=== PATIENT | female | born 1935 | race Caucasian/White ===

== ENCOUNTER 2019-05-13 04:47 | Emergency (ER) | payer OTHER ==
[~2019-05-13] VITALS: Ht 170.2 cm; Wt 108.9 kg
[2019-05-13 07:10] VITALS: BP 129/82
[2019-05-13 07:13] LABS: Basophils # (auto) 0 10 ^3/uL (0-0.2); Eosinophils # (auto) 0.1 10 ^3/uL (0-0.8); Eosinophils % (auto) 0.9 % (0.0-7.0); Lymphocytes # (auto) 1.4 10 ^3/uL (0.4-5.4); Monocytes # (auto) 0.7 10 ^3/uL (0-1.3); Monocytes % (auto) 8.9 % (0.0-12.0); Red Cell Distribution Width 13.7 % (11.8-14.3)
[2019-05-13 07:15] LABS: Basophils % (auto) 0.6 % (0.0-2.0); Hemoglobin 18.8 g/dL (12.2-16.2); Lymphocytes % (auto) 16.6 % (10.0-50.0); Mean Corpuscular Hemoglobin 33.7 pg (28.0-32.0); Mean Corpuscular Hgb Conc. 33.6 g/dL (32.0-36.0); Mean Corpuscular Volume 100.3 fL (80.0-100.0); Neutrophils # (auto) 6.2 10 ^3/uL (1.6-8.6); Nucleated Red Blood Cells % 0.1 %; Platelet Count (auto) 230 10^3/uL (140-450); Red Blood Cells 5.59 10^6/uL (4.0-5.20); White Blood Cell 8.4 10^3/uL (4.4-10.8)
[2019-05-13 07:28] LABS: INR 1.09 (0.9-1.15); Partial Thromboplastin Time 22.2 sec (23.64-32.05)
[2019-05-13 08:34] LABS: Alanine Aminotransferase 57 U/L (13-56); Alkaline Phosphatase 103 U/L (45-117); Anion Gap 8 (5-15); Aspartate Aminotransferase 50 U/L (15-37); Bilirubin, Total 2.7 mg/dL (0.2-1.0); Blood Urea Nitrogen 24 mg/dL (7-18); Calcium 10.3 mg/dL (8.5-10.1); Carbon Dioxide 21 mmol/L (21-32); Chloride 107 mmol/L (98-107); GFR African American 49 mL/min; GFR Non-African American 40 mL/min; Glucose 130 mg/dL (74-106); Magnesium 2.3 mg/dL (1.6-2.6); Potassium 3.4 mmol/L (3.5-5.1); Sodium 136 mmol/L (136-145); Total Protein 8.1 g/dL (6.4-8.2)
[2019-05-13] MEDS ORDERED: POTASSIUM EFFERVESENT TAB 25 MEQ PO ONE (09:15)
== END 2019-05-13 10:15 | disposition home or self-care (01) ==
LOC: ER 04:47 → EDBD 04:47 → ER 10:15
DX: M54.2 Cervicalgia (principal); I10 Essential (primary) hypertension; W19.XXXA Unspecified fall, initial encounter; Y93.89 Activity, other specified; Y92.89 Other specified places as the place of occurrence of the external cause; Y99.8 Other external cause status
CPT/HCPCS: 36415; 70450; 71045; 72125; 80053; 83735; 84484; 85025; 85610; 85730; 93005

== ENCOUNTER 2019-05-22 15:51 | Emergency (ER) | payer OTHER ==
[~2019-05-22] VITALS: Ht 167.6 cm; Wt 113.4 kg
[2019-05-22] MEDS ORDERED: SODIUM CHLORIDE 0.9% 1,000 ML IVB ONE (17:26)
[2019-05-22] MEDS ORDERED: cefTRIAXone 1GM/50ML D5W 50 ML IV ONE (17:30)
[2019-05-22 17:56] LABS: Urine Bacteria NONE SEEN /hpf (None Seen); Urine Blood TRACE /uL (Negative); Urine Hyaline Cast FEW /lpf (0 - 2); Urine Mucus FEW (None Seen); Urine Specific Gravity 1.023 (1.001-1.035); Urine WBC 14 /hpf (0 - 5)
[2019-05-22 18:43] LABS: Hematocrit 49.7 % (36.0-46.0); Mean Corpuscular Hgb Conc. 34.1 g/dL (32.0-36.0); Mean Corpuscular Volume 96.7 fL (80.0-100.0); Platelet Count (auto) 353 10^3/uL (140-450); Red Blood Cells 5.14 10^6/uL (4.0-5.20); Red Cell Distribution Width 13.4 % (11.8-14.3)
[2019-05-22 18:50] LABS: White Blood Cell 42.9 10^3/uL (4.4-10.8)
[2019-05-22 18:51] LABS: Alanine Aminotransferase 32 U/L (13-56); Albumin 2.9 g/dL (3.4-5.0); Anion Gap 8 (5-15); Aspartate Aminotransferase 40 U/L (15-37); BUN/Creatinine Ratio 20.5; Blood Alcohol < 3.0 mg/dL (0-5); Blood Urea Nitrogen 30 mg/dL (7-18); Carbon Dioxide 25 mmol/L (21-32); Chloride 107 mmol/L (98-107); GFR African American 44 mL/min; GFR Non-African American 36 mL/min; Glucose 179 mg/dL (74-106); Magnesium 2.2 mg/dL (1.6-2.6); Potassium 3.9 mmol/L (3.5-5.1); Sodium 140 mmol/L (136-145)
[2019-05-22 18:52] LABS: Basophils % (manual) 0 (0.0-2.0); Blast Cells 0; Eosinophils % (manual) 0 (0-7); Metamyelocytes % 0; Myelocytes % 0; Promyelocytes % 0; Reactive Lymphocytes 0
[2019-05-22 18:53] LABS: INR 1.3 (0.9-1.15); Lactic Acid w/Reflex 2.6 mmol/L (0.4-2.0); Partial Thromboplastin Time 28.5 sec (23.64-32.05)
[2019-05-22 18:54] LABS: Alkaline Phosphatase 134 U/L (45-117); Bilirubin, Total 3.5 mg/dL (0.2-1.0); Total Protein 7.8 g/dL (6.4-8.2)
[2019-05-22] MEDS ORDERED: CLINDAMYCIN 600MG IV 50 ML IV ONE (20:00)
[2019-05-22 20:13] LABS: Band Neutrophils % (manual) 2; Lymphocytes % (manual) 4 (10.0-50.0); Monocytes % (manual) 6 (0-12)
[2019-05-22] MEDS ORDERED: SODIUM CHLORIDE 0.9% 3,400 ML IV ONE (20:15)
[2019-05-23 07:00] VITALS: BP 140/90
== END 2019-05-23 06:54 | disposition short-term general hospital (02) ==
LOC: EDBD 15:51 → ER 15:51
DX: A41.9 Sepsis, unspecified organism (principal); G93.41 Metabolic encephalopathy; L03.211 Cellulitis of face; N39.0 Urinary tract infection, site not specified
CPT/HCPCS: 36415; 70450; 70486; 71045; 80053; 80320; 81001; 83605; 83735; 84443; 84484; 85007; 85027; 85610; 85730; 87040; 93005; 96365; 96366; 96367; 99291; J0696; J3490; J7030